=== PATIENT | female | born 1975 | race Caucasian/White ===

== ENCOUNTER 2017-01-03 14:06 | Observation (INO) | payer OTHER ==
[2017-01-03 15:03] LABS: % IMMATURE GRANULYOCYTES 0.4 % (0.0-1.1); ABSOLUTE IMMATURE GRANULOCYTES 0.04 10^3/uL (0.00-0.10); ADD DIFF? NO; ADD MORPH? NO; ADD SCAN? NO; ATYPICAL LYMPHOCYTE FLAG 0 (0-99); FRAGMENT RBC FLAG 0 (0-99); HEMATOCRIT 35.6 % (38.0-47.0); HEMOGLOBIN 11.6 g/dL (12.6-16.3); LEFT SHIFT FLG 0 (0-99); LIPEMIA HEMOLYSIS FLAG 80 (0-99); MEAN CELL HEMOGLOBIN 25.8 pg (27.9-34.1); MEAN CELL HEMOGLOBIN CONCENTR. 32.6 g/dL (32.4-36.7); MEAN CELL VOLUME 79.3 fL (81.5-99.8); MEAN PLATELET VOLUME 10.5 fL (8.7-11.7); PLATELET CLUMPS FLAG 10 (0-99); PLATELET COUNT 273 10^3/uL (150-400); RED BLOOD CELL COUNT 4.49 10^6/uL (4.18-5.33); RED CELL DISTRIBUTION WIDTH 13.4 % (11.5-15.2)
[2017-01-03] MEDS ORDERED: HYDROmorphONE/DILAUDID 1 MG/ML INJ IVP ONE ×2 (15:04→15:05)
[2017-01-03] MEDS ORDERED: ONDANSETRON 4 MG/2 ML VIAL IVP ONE ×2 (15:04→15:05)
[2017-01-03] MEDS ORDERED: NS 1,000 ML IV ONE ×2 (15:05→15:07)
[2017-01-03] MEDS ORDERED: ONDANSETRON 4 MG/2 ML VIAL ONE ×3 (15:05→20:58)
[2017-01-03 15:07] LABS: ANION GAP 11 mEq/L (8-16); CALCIUM 8.9 mg/dL (8.5-10.4); CARBON DIOXIDE 26 mEq/l (22-31); CHLORIDE 103 mEq/L (97-110); CREATININE 0.7 mg/dL (0.6-1.0); GLOMERULAR FILTRATION RATE > 60; GLUCOSE 93 mg/dL (70-100); POTASSIUM 3.6 mEq/L (3.5-5.2); SODIUM 140 mEq/L (134-144)
--- NOTE | 2017-01-03 15:08 | EDPHY ---
H & P Stated Complaint: EPIGASTRIC PAIN NAUSEA/VOMITING SEEN AT YESTERDAY FOR SAME/ RX OMEPRAZOLE Time Seen by Provider: 01/03/17 14:57 HPI/ROS: CHIEF COMPLAINT: Abdominal pain HISTORY OF PRESENT ILLNESS: The patient is a 41-year-old female who comes to the emergency department complaining of increasing abdominal pain since Sunday 6 days ago. Previous to that she had upper respiratory tract infection and was seen at the clinic. She was prescribed guaifenesin and azithromycin. She began taking down on Sunday. On Sunday she developed abdominal pain that is gradually worsened each day. No fevers but she has had chills. She vomited once at home today. She points to her periumbilical and epigastric region. She has not had diarrhea. She also complains of a migraine that was worse over the weekend but is now resolved. No trauma. No vaginal bleeding. No urinary symptoms. She does state that she has a frequent urination but this is baseline. No concern for . REVIEW OF SYSTEMS: Constitutional: denies: chills, fever, recent illness, recent injury EENTM: denies: blurred vision, double vision, nose congestion Respiratory: denies: cough, shortness of breath Cardiac: denies: chest pain, irregular heart rate, lightheadedness, palpitations Gastrointestinal/Abdominal: See HPI Genitourinary: denies: dysuria, frequency, hematuria, pain Musculoskeletal: denies: joint pain, muscle pain Skin: denies: lesions, rash, jaundice, bruising Neurological: denies: headache, numbness, paresthesia, tingling, dizziness, weakness Hematologic/Lymphatic: denies: blood clots, easy bleeding, easy bruising Immunologic/allergic: denies: HIV/AIDS, transplant EXAM: GENERAL: Well-appearing, well-nourished and in no acute distress. HEAD: Atraumatic, normocephalic. EYES: Pupils equal round and reactive to light, extraocular movements intact, sclera anicteric, conjunctiva are normal. ENT: TMs normal, nares patent, oropharynx clear without exudates. Moist mucous membranes. NECK: Normal range of motion, supple without lymphadenopathy or JVD. LUNGS: Breath sounds clear to auscultation bilaterally and equal. No wheezes rales or rhonchi. HEART: Regular rate and rhythm without murmurs, rubs or gallops. ABDOMEN: The right upper quadrant tenderness, no guarding or rebound BACK: No CVA tenderness, no spinal tenderness, step-offs or deformities EXTREMITIES: Normal range of motion, no pitting or edema. No clubbing or cyanosis. NEUROLOGICAL: Cranial nerves II through XII grossly intact. Normal speech, normal gait. 5/5 strength, normal movement in all extremities, normal sensation PSYCH: Normal mood, normal affect. SKIN: Warm, dry, normal turgor, no visible rashes or lesions. Source: Patient Exam Limitations: No limitations - Personal History LMP (Females 10-55): 15-21 Days Ago Current Tetanus/Diphtheria Vaccine: Unsure - Medical/Surgical History Hx Asthma: No Hx Chronic Respiratory Disease: No Hx Diabetes: No Hx Cardiac Disease: No Hx Renal Disease: No Hx Cirrhosis: No Hx Alcoholism: No Hx HIV/AIDS: No Hx Splenectomy or Spleen Trauma: No Other PMH: R ARM SURG - Family History Significant Family History: No pertinent family hx - Social History Smoking Status: Never smoked Alcohol Use: Sober Drug Use: None Constitutional: Initial Vital Signs Temperature (C) 36.6 C 01/03/17 14:23 Heart Rate 59 L 01/03/17 14:23 Respiratory Rate 18 01/03/17 14:23 Blood Pressure 120/74 01/03/17 14:23 O2 Sat (%) 98 01/03/17 14:23 O2 Delivery Mode Room Air Allergies/Adverse Reactions: No Known Allergies Allergy (Verified 01/03/17 14:21) Home Medications: Medication Instructions Recorded AZITHROMYCIN [Z-PACK] 250 mg PO DAILY 01/03/17 [place] 5/325 (*) 1 - 2 tab PO Q4H PRN 01/03/17 Omeprazole [Prilosec 20 mg] 20 mg PO DAILY 01/03/17 guaiFENesin [Guaifenesin] 10 ml PO Q4 PRN 01/03/17 Medical Decision Making - Diagnostics Imaging Results: Imaging Impressions Abdomen Ultrasound 01/03/17 15:05 Impression: 1. No acute findings. 2. Fatty infiltration of the liver. Findings discussed with THOR GALICIA 01/03/2017 at 15:52. Abdomen/Pelvis CT 01/03/17 15:51 Impression: 1. Enlarged appendix with an appendicolith at its base and trace periappendiceal stranding; however, with air in the tip of the appendix. This is equivocal for early acute appendicitis. 2. Constipation. 3. Additional findings as above. Findings discussed with Thor Galicia, 01/03/2017, at 1651 hours. Imaging: Discussed imaging studies w/ house calls nurse practitioner Radiologist ED Course/Re-evaluation: 3:50 p.m. the patient's ultrasound and lab work are reassuring. Her white blood cell count is very minimally elevated. On repeat examination she is now complaining primarily periumbilical and some right lower quadrant pain. Will order a CT scan to evaluate further. She had only minimal improvement with Dilaudid and then Toradol. We will try ketamine. 5:00 p.m. I discussed the case with Dr. Jason Goodwin who will consult. Differential Diagnosis: Partial list of the Differential diagnosis considered include but were not limited to; biliary disease, appendicitis, ovarian cyst and although unlikely based on the history and physical exam, I also considered urinary tract infection, kidney stone, . - Data Points Laboratory Results: Laboratory Results 01/03/17 14:41 01/03/17 14:41 01/03/17 01/03/17 01/03/17 16:30 14:41 14:41 WBC RBC Hgb Hct MCV MCH MCHC RDW Plt Count MPV Neut % (Auto) Lymph % (Auto) Metcalfe % (Auto) Eos % (Auto) Baso % (Auto) Nucleat RBC Rel Count Absolute Neuts (auto) Absolute Lymphs (auto) Absolute Monos (auto) Absolute Eos (auto) Absolute Basos (auto) Absolute Nucleated RBC Immature Gran % Immature Gran # PT 12.9 SEC SEC (12.0-15.0) INR 0.98 (0.83-1.16) APTT 26.2 SEC SEC (23.0-38.0) Sodium Potassium Chloride Carbon Dioxide Anion Gap BUN Creatinine Estimated GFR Glucose Calcium Total Bilirubin Conjugated Bilirubin Unconjugated Bilirubin AST ALT Alkaline Phosphatase Total Protein Albumin Lipase Beta HCG, Qual NEGATIVE Urine Color YELLOW Urine Appearance CLEAR Urine pH 7.0 (5.0-7.5) Ur Specific [place] 1.033 H (1.002-1.030) Urine Protein NEGATIVE (NEGATIVE) Urine Ketones TRACE H (NEGATIVE) Urine Blood NEGATIVE (NEGATIVE) Urine Nitrate NEGATIVE (NEGATIVE) Urine Bilirubin NEGATIVE (NEGATIVE) Urine Urobilinogen NEGATIVE EU EU (0.2-1.0) Ur Leukocyte Esterase NEGATIVE (NEGATIVE) Urine RBC 1-3 /hpf /hpf (0-3) Urine WBC 1-3 /hpf /hpf (0-3) Ur Epithelial Cells TRACE /lpf /lpf (NONE-1+) Urine Mucus TRACE /lpf /lpf (NONE-1+) Urine Glucose NEGATIVE (NEGATIVE) 01/03/17 01/03/17 14:41 14:41 WBC 11.26 10^3/uL H 10^3/uL (3.80-9.50) RBC 4.49 10^6/uL 10^6/uL (4.18-5.33) Hgb 11.6 g/dL L g/dL (12.6-16.3) Hct 35.6 % L % (38.0-47.0) MCV 79.3 fL L fL (81.5-99.8) MCH 25.8 pg L pg (27.9-34.1) MCHC 32.6 g/dL g/dL (32.4-36.7) RDW 13.4 % % (11.5-15.2) Plt Count 273 10^3/uL 10^3/uL (150-400) MPV 10.5 fL fL (8.7-11.7) Neut % (Auto) 77.2 % H % (39.3-74.2) Lymph % (Auto) 17.1 % % (15.0-45.0) Metcalfe % (Auto) 4.3 % L % (4.5-13.0) Eos % (Auto) 0.6 % % (0.6-7.6) Baso % (Auto) 0.4 % % (0.3-1.7) Nucleat RBC Rel Count 0.0 % % (0.0-0.2) Absolute Neuts (auto) 8.70 10^3/uL H 10^3/uL (1.70-6.50) Absolute Lymphs (auto) 1.93 10^3/uL 10^3/uL (1.00-3.00) Absolute Monos (auto) 0.48 10^3/uL 10^3/uL (0.30-0.80) Absolute Eos (auto) 0.07 10^3/uL 10^3/uL (0.03-0.40) Absolute Basos (auto) 0.04 10^3/uL 10^3/uL (0.02-0.10) Absolute Nucleated RBC 0.00 10^3/uL 10^3/uL (0-0.01) Immature Gran % 0.4 % % (0.0-1.1) Immature Gran # 0.04 10^3/uL 10^3/uL (0.00-0.10) PT INR APTT Sodium 140 mEq/L mEq/L (134-144) Potassium 3.6 mEq/L mEq/L (3.5-5.2) Chloride 103 mEq/L mEq/L (97-110) Carbon Dioxide 26 mEq/l mEq/l (22-31) Anion Gap 11 mEq/L mEq/L (8-16) BUN 10 mg/dL mg/dL (7-23) Creatinine 0.7 mg/dL mg/dL (0.6-1.0) Estimated GFR > 60 Glucose 93 mg/dL mg/dL (70-100) Calcium 8.9 mg/dL mg/dL (8.5-10.4) Total Bilirubin 0.2 mg/dL mg/dL (0.1-1.4) Conjugated Bilirubin 0.0 mg/dL mg/dL (0.0-0.5) Unconjugated Bilirubin 0.2 mg/dL mg/dL (0.0-1.1) AST 28 IU/L IU/L (14-46) ALT 44 IU/L IU/L (9-52) Alkaline Phosphatase 72 IU/L IU/L (38-126) Total Protein 6.4 g/dL g/dL (6.3-8.2) Albumin 4.0 g/dL g/dL (3.5-5.0) Lipase 79 IU/L IU/L (23-300) Beta HCG, Qual Urine Color Urine Appearance Urine pH Ur Specific Randolph Urine Protein Urine Ketones Urine Blood Urine Nitrate Urine Bilirubin Urine Urobilinogen Ur Leukocyte Esterase Urine RBC Urine WBC Ur Epithelial Cells Urine Mucus Urine Glucose Medications Given: Discontinued Medications Hydrocodone Bitart/Acetaminophen ([place] 5/325) 1 - 2 tab PO Q4HRS PRN PRN Reason: PACU, Pain Moderate Stop: 01/03/17 20:41 Last Admin: 01/03/17 21:14 Dose: 1 tab Bupivacaine HCl/Epinephrine Bitart (Bupivacaine/Epi) Confirm Administered Dose 30 ml .ROUTE .STK-MED ONE Stop: 01/03/17 19:00 Last Admin: 01/03/17 20:04 Dose: 10 ml Ertapenem (Invanz) 1 gm IVP EDNOW ONE PRN Reason: Protocol Stop: 01/03/17 17:46 Last Admin: 01/03/17 19:06 Dose: 1 gm Fentanyl (Sublimaze) 25 - 100 mcg IVP Q5M PRN PRN Reason: PACU, IMMEDIATE Pain control Stop: 01/03/17 20:41 Last Admin: 01/03/17 20:32 Dose: 50 mcg Hydromorphone HCl (Dilaudid) 1 mg IVP EDNOW ONE Stop: 01/03/17 15:05 Last Admin: 01/03/17 15:10 Dose: 1 mg Hydromorphone HCl (Dilaudid) 1 mg IVP EDNOW ONE Stop: 01/03/17 15:06 Last Admin: 01/03/17 15:11 Dose: Not Given Sodium Chloride (Ns) 1,000 mls @ 0 mls/hr IV EDNOW ONE; Wide Open PRN Reason: Protocol Stop: 01/03/17 15:06 Last Admin: 01/03/17 15:10 Dose: 1,000 mls Sodium Chloride (Ns) 1,000 mls @ 0 mls/hr IV ONCE ONE; Wide Open PRN Reason: Protocol Stop: 01/03/17 15:08 Last Admin: 01/03/17 15:11 Dose: Not Given Lactated Ringer's (Lr) 1,000 mls @ 0 mls/hr IV ONCE ONE PRN Reason: Per Protocol Stop: 01/03/17 18:39 Last Admin: 01/03/17 19:06 Dose: 1,000 mls Ketamine HCl (Ketamine) 15.4 mg 0.2 mg/kg (15.4 mg) IVP EDNOW ONE Stop: 01/03/17 15:52 Last Admin: 01/03/17 17:17 Dose: Not Given Ketorolac Tromethamine (Toradol) 30 mg IVP EDNOW ONE Stop: 01/03/17 15:25 Last Admin: 01/03/17 15:28 Dose: 30 mg Midazolam HCl (Versed) 2 mg IVP ONCE ONE Stop: 01/03/17 18:50 Last Admin: 01/03/17 19:18 Dose: 2 mg Ondansetron HCl (Zofran) 4 mg IVP EDNOW ONE Stop: 01/03/17 15:05 Last Admin: 01/03/17 15:10 Dose: 4 mg Ondansetron HCl (Zofran) 4 mg IVP EDNOW ONE Stop: 01/03/17 15:06 Last Admin: 01/03/17 15:12 Dose: Not Given Ondansetron HCl (Zofran) 2 - 4 mg IVP Q10M PRN PRN Reason: PACU, Nausea/Vomiting Stop: 01/03/17 20:41 Last Admin: 01/03/17 20:59 Dose: 4 mg Departure - Departure Disposition: [facility] Inpatient Acute Clinical Impression: Abdominal pain Qualifiers: Abdominal location: generalized Qualified Code(s): R10.84 - Generalized abdominal pain Condition: Good
[2017-01-03 15:17] LABS: ALANINE AMINOTRANSFERASE 44 IU/L (9-52); ALKALINE PHOSPHATASE 72 IU/L (38-126); ASPARTATE AMINOTRANSFERASE 28 IU/L (14-46); BILIRUBIN,TOTAL 0.2 mg/dL (0.1-1.4); BILIRUBIN-UNCONJUGATED 0.2 mg/dL (0.0-1.1); TOTAL PROTEIN 6.4 g/dL (6.3-8.2)
[2017-01-03 15:19] LABS: INR 0.98 (0.83-1.16); PROTIME(PATIENT) 12.9 SEC (12.0-15.0)
[2017-01-03 15:20] LABS: APTT 26.2 SEC (23.0-38.0)
[2017-01-03] MEDS ORDERED: KETOROLAC 30 MG/1 ML SDV IVP ONE (15:24)
[2017-01-03] MEDS ORDERED: KETAMINE 100 MG/10 ML SYR IVP ONE (15:51)
[2017-01-03] MEDS ORDERED: IOPAMIDOL (ISOVUE-300) 100 ML BTL ONE (15:55)
[2017-01-03 16:45] LABS: COLOR YELLOW; LEUKOCYTE ESTERASE,URINE NEGATIVE (NEGATIVE); NITRITE,URINE NEGATIVE (NEGATIVE)
[2017-01-03 17:00] LABS: MUCUS TRACE /lpf (NONE-1+)
[2017-01-03] MEDS ORDERED: ERTAPENEM 1 GM VIAL IVP ONE (17:45)
[2017-01-03] MEDS ORDERED: LR 1,000 ML IV ONE (18:38)
--- NOTE | 2017-01-03 18:46 | PDANEPAE ---
ANE History of Present Illness 41 year old female presents for appendectomy. ANE Past Medical History - Cardiovascular History Hx Hypertension: No Hx Arrhythmias: No Hx Chest Pain: No Hx Coronary Artery / Peripheral Vascular Disease: No Hx CHF / Valvular Disease: No Hx Palpitations: No - Pulmonary History Hx COPD: No Hx Asthma/Reactive Airway Disease: No Hx Recent Upper Respiratory Infection: Yes Hx Oxygen in Use at Home: No Hx Sleep Apnea: No Pulmonary History Comment: recent URI, on antibiotics - Endocrine History Hx Diabetes: No Hypothyroid: No Hyperthyroid: No - Renal History Hx Renal Disorders: No - Liver History Hx Hepatic Disorders: No - Neurological & Psychiatric Hx Hx Neurological and Psychiatric Disorders: No - Cancer History Hx Cancer: No - Congenital Disorder History Hx Congenital Disorders: No ANE Review of Systems Review of systems is: negative Review of Systems: - Exercise capacity Exercise capacity: >=4 METS ANE Patient History - Allergies Allergies/Adverse Reactions: No Known Allergies Allergy (Verified 01/03/17 14:21) - Home Medications Home medications: home medication list seen and reviewed Home Medications: AZITHROMYCIN [Z-PACK] 250 mg PO DAILY 01/03/17 [Last Taken 01/03/17] Omeprazole [Prilosec 20 mg] 20 mg PO DAILY 01/03/17 [Last Taken 01/03/17] guaiFENesin [Guaifenesin] 10 ml PO Q4 PRN 01/03/17 [Last Taken 01/03/17] - NPO status NPO Status: no food or drink >8 hours NPO Since - Liquids (Date): 01/03/17 NPO Since - Liquids (Time): 13:30 NPO Since - Solids (Date): 01/03/17 NPO Since - Solids (Time): 10:30 - Anes Hx Anes Hx: no prior problems - Smoking Hx Smoking Status: Never smoked - Alcohol Use Alcohol Use: Sober - Family Anes Hx Family Anes Hx: neg - N/A ANE Labs/Vital Signs - Labs Result Diagrams: 01/03/17 14:41 01/03/17 14:41 - Vital Signs Vital Signs: reviewed preoperatively; see RN documention for details Blood Pressure: 127/75 Heart Rate: 68 Respiratory Rate: 16 O2 Sat (%): 96 Height: 154.94 cm Weight: 77.111 kg ANE Physical Exam - Airway Neck exam: FROM Mallampati Score: Class 3 Mouth exam: poor dentition - Pulmonary Pulmonary: no respiratory distress - Cardiovascular Cardiovascular: regular rate and rhythym - ASA Status ASA Status: II ANE Anesthesia Plan Anesthesia Plan: general endotracheal anesthesia Total IV Anesthesia: No
[2017-01-03] MEDS ORDERED: MIDAZOLAM 2 MG/2 ML VIAL IVP ONE (18:49)
[2017-01-03] MEDS ORDERED: BUPIVACAINE/EPI 0.5% 30 ML SDV ONE (18:59)
[2017-01-03] MEDS ORDERED: PROPOFOL 200 MG/20 ML VIAL ONE (19:12)
[2017-01-03] MEDS ORDERED: fentaNYL 100 MCG/2 ML INJ ONE ×2 (19:12→20:30)
[2017-01-03] MEDS ORDERED: LIDOCAINE 2% 5 ML SDV ONE (19:12)
[2017-01-03] MEDS ORDERED: SUCCINYLCHOLINE CHLORIDE*ANESTHESIA ONLY*200 MG/10 ML SYR IVP ONE (19:12)
[2017-01-03] MEDS ORDERED: ROCURONIUM 50 MG/5 ML VIAL ONE (19:12)
[2017-01-03] MEDS ORDERED: DEXAMETHASONE 4 MG/ML VIAL ONE (19:32)
[2017-01-03] MEDS ORDERED: HYDROCODONE/APAP 5/325 TAB PO PRN (19:41)
[2017-01-03] MEDS ORDERED: LR 500 ML IV PRN (19:41)
[2017-01-03] MEDS ORDERED: ONDANSETRON 4 MG/2 ML VIAL IVP PRN (19:41)
[2017-01-03] MEDS ORDERED: NALOXONE HCL 0.4 MG/ML INJ IVP PRN (19:41)
[2017-01-03] MEDS ORDERED: fentaNYL 100 MCG/2 ML INJ IVP PRN (19:41)
[2017-01-03] MEDS ORDERED: SUGAMMADEX SODIUM 200 MG/2 ML VIAL IVP ONE (19:59)
--- NOTE | 2017-01-03 20:23 | POSTOPPROG ---
Post Op Note Date of Operation: 01/03/17 Surgeon: Jason Goodwin Anesthesia: GET(General Endotracheal) Pre-op Diagnosis: acute appy Post-op Diagnosis: same Indication: same Procedure: lap appy Findings: acute appendicitis Inf/Abcess present in the surg proc area at time of surgery?: No Complications: none
--- NOTE | 2017-01-03 20:33 | GOP ---
[f rep st] OPERATIVE REPORT DATE OF OPERATION: 01/03/2017 SURGEON: Jason Goodwin MD PREOPERATIVE DIAGNOSIS: Acute appendicitis. POSTOPERATIVE DIAGNOSIS: Acute appendicitis. PROCEDURE PERFORMED: Laparoscopic appendectomy and incidental umbilical hernia repair. FINDINGS: INDICATIONS: This patient has acute appendicitis. When she was asleep, a small umbilical hernia was palpated. DESCRIPTION OF PROCEDURE: General anesthetic. The abdomen scrubbed with ChloraPrep, draped in the usual sterile fashion. A transumbilical incision was made and a Veress needle placed through the peritoneum of the hernia sac. After the abdomen was insufflated, a 10 mm trocar easily passed through the hernia sac. Two 5 mm ports elsewhere. The appendix was exudative. There was some purulence in the pelvis, although there was no sign of rupture. The mesoappendix was harvested with the Harmonic Scalpel and the base of the appendix was amputated with an Endo-HI 30 blue cartridge. The appendix was placed in a pouch and extracted from the fascial defect at the umbilicus which was then closed with 0 Vicryl. The skin was closed with 4-0 Vicryl and Dermabond. The patient tolerated the procedure well. /[id number]/MODL MTDD
--- NOTE | 2017-01-03 20:48 | GDS ---
[f rep st] DISCHARGE SUMMARY HOSPITAL COURSE: The patient underwent appendectomy for appendicitis, did well, and is discharged [place]. Follow up with Dr. Goodwin in a week. /[id number]/MODL
[2017-01-03] MEDS ORDERED: HYDROCODONE/APAP 5/325 TAB ONE (20:55)
[2017-01-03 21:29] VITALS: TEMP 98.4
[2017-01-03 21:51] VITALS: BP 117/80; O2SAT 95
[2017-01-03 22:26] VITALS: PULSE 72; RESP 16
--- NOTE | 2017-01-04 09:02 | POSTANESTH ---
Post Anesthetic Evaluation Cardiovascular Status: Normal, Stable, Similar to Pre-Op Cond Respiratory Status: Normal, Stable, Similar to Pre-op Cond. Level of Consciousness/Mental Status: Can Participate in Eval, Alert and Oriented Pain Control: Adequate, Prn Tx Ordered Nausea/Vomiting Control: Adequate, Prn Tx Ordered Complications Possibly Related to Anesthesia: None Noted
== END 2017-01-03 22:05 | disposition home or self-care (01) ==
PROVIDERS: ADMIT Surgery; ATTEND Surgery
PROC: 0DTJ4ZZ Resection of Appendix, Percutaneous Endoscopic Approach (ICD-10-PCS; principal; 2017-01-03 19:00)
DX: K35.80 Unspecified acute appendicitis (principal)
CPT/HCPCS: 96374; J0330; J1100; J1170; J1335; J1885; J2250; J2405; J2704; J3010; Q9967

== ENCOUNTER → 2017-04-04 | Outpatient (CLI) | payer OTHER | LOC: FIMAGING 14:00 | PROVIDERS: ATTEND Physician Assistant Medical | DX: N64.4 Mastodynia (principal) ==